=== PATIENT | female | born 1965 | race Caucasian/White ===

== ENCOUNTER 2023-01-04 12:47 | Emergency (ER) | payer MEDICAID, SELFPAY ==
[2023-01-04 12:48] VITALS: BP 118/85; PULSE 102; RESP 18; TEMP 37.2; O2SAT 96; BMI 19.2
--- NOTE | 2023-01-04 13:23 | CT_ITS ---
EXAM: CT ABDOMEN AND PELVIS WITHOUT INTRAVENOUS CONTRAST CLINICAL INDICATION: Abdominal pain -- PO Contrast TECHNIQUE: Helically acquired images were obtained of the abdomen and pelvis without intravenous contrast. This CT exam was performed using one or more of the following dose reduction techniques: automated exposure control, adjustment of the mA and/or kV according to patient size, and/or use of iterative reconstruction technique. This report was created using [employer] report generation technology. CONTRAST: Oral Gastrografin COMPARISON: None. FINDINGS: LOWER THORAX: Normal. Lung bases are clear. No cardiomegaly. No pericardial effusion. ABDOMEN: LIVER: 8 mm cyst noted within hepatic segment 3. No follow-up indicated. GALLBLADDER AND BILE DUCTS: Dependent density within the gallbladder may represent sludge, stones or vicarious contrast excretion. No gallbladder distention or wall edema. No intra- or extrahepatic biliary ductal dilation. PANCREAS: Pancreatic duct is dilated measuring 4.7 mm in maximum diameter. No discrete mass is suggested within the head of the pancreas. No focal cystic mass. SPLEEN: Normal. Normal size without focal cystic or solid mass. ADRENALS: Normal. No nodules. KIDNEYS AND URETERS: 3 mm stone noted within the upper pole of the left kidney. STOMACH AND BOWEL: Nonspecific distention of the large bowel. No evidence of bowel obstruction. PELVIS: APPENDIX: No evidence of acute appendicitis. BLADDER: Normal. REPRODUCTIVE: Unremarkable as visualized. No mass. ABDOMEN and PELVIS: INTRAPERITONEAL SPACE: Normal. No ascites or other fluid collection. No free air. BONES/JOINTS: No suspicious lytic or blastic abnormality. SOFT TISSUES: Normal. No discrete abdominal or pelvic wall hernia. VASCULATURE: Normal. Abdominal aorta is non-dilated. LYMPH NODES: Normal. No enlarged lymph nodes. CT/Abdomen/Pelvis without Cont IMPRESSION: 1. Distended pancreatic duct etiology of which is uncertain. Follow-up MRI with and without contrast may be of further value. 2. 3 mm nonobstructive left renal stone. 3. Question gallbladder sludge versus stones versus vicarious contrast excretion. 4. Nonspecific large bowel ileus. Electronically Signed: Kale Block MD at 16:23 EST ,
[2023-01-04 13:49] LABS: Bacteria 0 SEEN /hpf (None Seen); Mucous, Urine 0 SEEN /hpf (<or=2+); Squamous Epithelial Cells - UA 0 SEEN /hpf (5-10)
[2023-01-04 13:52] LABS: Color, Urine Yellow (Yellow); Glucose, Dipstick Normal (Normal); Ketone-Dipstick Negative (Negative); Leukocyte Esterase-Dipstick 25 /ul (Negative); Nitrite-Dipstick Negative (Negative); Occult Blood-Urine 50 /ul (Negative); Protein-Dipstick 100 mg/dl (Negative); Specific Gravity, Urine 1.025 (1.002-1.030); Urine Bilirubin Dipstick Negative (Negative); Urine Clarity Sl. Cloudy (Clear); Urine Urobilinogen Normal (Normal)
[2023-01-04 13:56] LABS: Absolute Neutrophil Count 5.2 X10^3/uL (2.0-7.7); Basophil# 0.01 X10^3/uL; Basophil% 0.1 % (0-1); Eosinophil# 0.04 X10^3/uL; Eosinophils% 0.5 % (0-5); Hematocrit 44.4 % (37-47); Hemoglobin 14.1 g/dL (12.0-15.0); Lymphocyte % 20.3 % (19-41); Mean Corp Hgb Conc 31.8 g/dL (32-36); Mean Corpuscular Hgb 29.9 pg (27.0-32.0); Mean Corpuscular Volume 94.1 fL (81-99); Mean Platelet Vol. 11.7 fl (6.2-12.0); Monocyte# 0.67 X10^3/uL; Monocyte% 9.1 % (0-10); NRBC Flagged by Analyzer 0 % (0-5); Neutrophil # 5.15 X10^3/uL (2.7-7.7); Neutrophil % 69.7 % (47-70); POSITIVE COUNT YES; RBC Distribution Width CV 12.7 % (11.6-14.6); RBC Distribution Width SD 43.9 fl (35.1-43.9); Red Blood Count 4.72 M/mm3 (4.2-5.4); White Blood Count 7.4 K/mm3 (4.4-11.0)
[2023-01-04 14:00] LABS: Red Blood Cells-Urine 0-5 SEEN /hpf (0-5); White Blood Cells 50-100 SEEN /hpf (0-5)
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
[2023-01-04 14:10] LABS: AST(SGOT) 31 U/L (15-37); Alanine Aminotransfer ALT/SGPT 36 U/L (13-56); Albumin, Serum 3.7 g/dL (3.2-5.0); Alkaline Phosphatase 103 U/L (45-117); Anion Gap 5 (5-15); BUN 11 mg/dL (7-18); BUN/Creat Ratio 13.5 RATIO (10-20); Calcium,Total 10.5 mg/dL (8.5-10.1); Chloride 111 mmol/L (98-107); Creatinine, Serum 0.82 mg/dL (0.55-1.02); EST Glomerular Filtration Rate 77 mL/min (>60); Est Glom Filt Rate - Afr Amer 93 mL/min (>60); Estimated Creatinine Clearance 65.28 ml/min; Globulin 3.6 g/dL (2.2-4.2); Glucose 105 mg/dL (74-106); Lipase 188 U/L (73-393); Potassium 4.6 mmol/L (3.5-5.1); Protein, Total 7.3 g/dL (6.4-8.2); Sodium Level 144 mmol/L (136-145)
[2023-01-04] MEDS: 0.9% Normal Saline 1,000 ML 1000 ML IV (14:41)
[2023-01-04] MEDS: Morphine 4 MG/ML Syringe IV (14:41)
[2023-01-04] MEDS: Ondansetron 4 MG/2 ML Vial IV (14:42)
[2023-01-04 14:49] VITALS: BP 116/78; PULSE 88; RESP 16; TEMP 36.7; O2SAT 99
[2023-01-04 15:38] LABS: Differential Indicated SCAN CRITERIA MET
[2023-01-04 15:46] LABS: Platelet Estimate ADEQUATE (ADEQ)
[2023-01-04 17:10] VITALS: BP 120/83; PULSE 81; RESP 16; O2SAT 100
== END 2023-01-04 17:18 | disposition home or self-care (01) ==
PROVIDERS: Emergency Provider Emergency Medicine; Visit Provider Emergency Medicine
DX: N32.9 Bladder disorder, unspecified (principal); N39.0 Urinary tract infection, site not specified; K86.89 Other specified diseases of pancreas; N20.0 Calculus of kidney; Z79.899 Other long term (current) drug therapy
CPT/HCPCS: 74176; 80053; 81001; 83690; 85025; 96361; 96374; 96375; 99283; J7030; A4216; J2405

== ENCOUNTER 2023-08-01 11:16 | Emergency (ER) | payer MEDICAID, SELFPAY ==
[2023-08-01 11:18] VITALS: BP 104/67; PULSE 79; RESP 16; TEMP 35.9; O2SAT 97; BMI 21.2
--- NOTE | 2023-08-01 12:13 | CT_ITS ---
STUDY: CT BRAIN WITHOUT CONTRAST REASON FOR EXAM: Female, 57 years old. Syncope RADIATION DOSAGE (If Supplied By Facility): CTDIvol = ( 44.99 ) mGy, DLP = ( 745.49 ) mGycm TECHNIQUE: Transaxial CT imaging of the brain was performed without administration of intravenous contrast material. Individualized dose optimization techniques were used for this CT. COMPARISON: No relevant priors. FINDINGS: Normal soft tissue structures. Normal calvarium. Normal size ventricles and extra-axial spaces for the patient''s age. Normal white matter tracts of the cerebral hemispheres. Normal basal ganglia and thalami. Normal brainstem. Normal cerebellum. There is no intracranial hemorrhage. There are no findings of an acute ischemic infarction. Normal visualized paranasal sinuses. CT/Brain/Head without Contrast IMPRESSION: Normal unenhanced CT scan of the brain. Electronically Signed: Vel Mojica MD at 13:05 EDT ,
--- NOTE | 2023-08-01 12:14 | EKG12_ITS ---
Test Reason : SYNCOPE Blood Pressure : / mmHG Vent. Rate : 085 BPM Atrial Rate : 085 BPM P-R Int : 168 ms QRS Dur : 080 ms QT Int : 372 ms P-R-T Axes : 076 077 077 degrees QTc Int : 442 ms Normal sinus rhythm Nonspecific ST abnormality Abnormal ECG Confirmed by PAWEL GARCIA, SHAE ([id number]), graphics editor RICKY WHEATLEY ([id number]) on 08/05/2023 2:07:47 PM Referred By: SHAYY Confirmed By:SHAE ARMAS MD
--- NOTE | 2023-08-01 12:20 | EX.ED.DYSGE1 ---
HPI History of Present Illness Chief Complaint: Syncope Narrative Narrative: Patient is a 57-year-old female who is presenting to the ER today with chief complaint of a closed head injury and near syncopal episode. Patient's caregiver is at bedside. Patient normally has intermittent diarrhea. Patient also has a history of bladder cancer that she is getting intermittent treatments with as well. Patient lives at a intermediate. Caregiver at bedside. Patient will normally have intermittent urinary or bowel incontinence. Patient felt like she is going to have a bowel movement/diarrhea at work, she wants to go home. Patient went into the restroom at work, was sitting on the toilet and did have some diarrhea. Patient did lock the door, patient was not feeling good when he was asking for help. Caregivers cannot get into the stall because the door was locked. Patient was able to stand up, unlock the door, and patient had lost her balance and had a near syncopal episode from standing up from the toilet after having diarrhea. Patient fell sideways, hitting the left side of her head against the bathroom stall. Patient not on blood thinners. Patient has no headache or neck pain. No chest pain or shortness of breath. No abdominal pain, mild nausea and 2 episodes of vomiting after the syncopal/close head injury. Patient currently has no nausea, she has had no vomiting in the ER. Patient was brought by care staff for evaluation. [facility] Home Medications aripiprazole 10 mg tablet 10 mg PO DAILY 01/04/23 [History Last Taken Unknown] fluticasone propionate 50 mcg/actuation nasal spray,suspension 1 spray intranasal DAILY 01/04/23 [History Last Taken Unknown] trazodone 50 mg tablet 50 mg PO QHS 01/04/23 [History Last Taken Unknown] Allergy/AdvReac Type Severity Reaction Status Date / Time bee venom protein (honey bee) Allergy Hives Verified 08/01/23 11:23 [bee stings] Penicillins [PCN] Allergy Hives Verified 08/01/23 11:23 Social History Smoking Status: Never smoker ROS ROS ED ROS Narrative REVIEW OF SYSTEMS: Unless otherwise stated in this report the patient's positive and negative responses for review of systems for constitutional, eyes, ENT, cardiovascular, respiratory, gastrointestinal, neurological, , musculoskeletal, and integument systems and related systems to the presenting problem are either stated in the history of present illness or were not pertinent or were negative for the symptoms and/or complaints related to the presenting medical problem. EXAM Physical Exam Narrative Exam Narrative: Vital signs reviewed and patient is not hypoxic. General: The patient appears well and in no apparent distress. Patient is resting comfortably on cart. Not toxic, lethargic, or listless. Skin: Warm, dry, no pallor noted. There is no rash noted. Head: Normocephalic, minimal small hematoma to left parietal area, firm, no abrasion, laceration, or any other acute signs of injury. No midline or paracervical tenderness palpation. Full range of motion with no difficulty. Eye: Normal conjunctiva, no drainage, EOMI. PERRL. Ears, Nose, Mouth, and Throat: oral mucosa is moist. Nares patent. Mouth without vesicles. Cardiovascular: Regular Rate and Rhythm, no murmurs, gallops, or rubs Respiratory: Patient is in no distress, no accessory muscle use, lungs are clear to auscultation, no wheezing, rales or rhonchi Back: non-tender, no CVA tenderness bilaterally to percussion. NO CTLS midline or paraspinal tenderness to palpation. GI: Soft, no tenderness to palpation, no masses appreciated. No rebound, guarding, or rigidity noted. No flank pain bilateral, no suprapubic tenderness palpation bilateral Musculoskeletal: The patient has full range of motion of all extremities and joints with no difficulty. Patient has no motor, no sensory deficits. Neurological: A&O x3, patient knows it summer/fall, slightly confused to year, normal speech, no focal neurological deficits. Psychiatric: Cooperative, patient is at baseline for her neurological developmental disability status. No acute changes. Const Vital Signs: 08/01/23 11:18 08/01/23 11:23 08/01/23 13:07 Temperature 96.6 F L Temperature Source Oral Pulse Rate 79 Pulse Rate [Lying] 88 Pulse Rate [Sitting (for 1 minute prior to obtaining)] 82 Pulse Rate [Standing (for 1 minute prior to obtaining)] 85 Respiratory Rate 16 Respiratory Pattern Normal Blood Pressure 104/67 Blood Pressure [Lying] 103/63 Blood Pressure [Sitting (for 1 minute prior to obtaining)] 102/96 H Blood Pressure [Standing (for 1 minute prior to obtaining)] 113/66 Blood Pressure Mean 79 Blood Pressure Mean [Lying] 76 Blood Pressure Mean [Sitting (for 1 minute prior to obtaining)] 98 Blood Pressure Mean [Standing (for 1 minute prior to obtaining)] 81 Pulse Ox 97 Oxygen Delivery Method Room Air 08/01/23 13:52 Temperature Temperature Source Pulse Rate 82 Pulse Rate [Lying] Pulse Rate [Sitting (for 1 minute prior to obtaining)] Pulse Rate [Standing (for 1 minute prior to obtaining)] Respiratory Rate 14 Respiratory Pattern Blood Pressure Blood Pressure [Lying] Blood Pressure [Sitting (for 1 minute prior to obtaining)] Blood Pressure [Standing (for 1 minute prior to obtaining)] Blood Pressure Mean Blood Pressure Mean [Lying] Blood Pressure Mean [Sitting (for 1 minute prior to obtaining)] Blood Pressure Mean [Standing (for 1 minute prior to obtaining)] Pulse Ox 99 Oxygen Delivery Method MDM MDM MDM Narrative Medical decision making narrative: Patient looks well. Patient's been drinking with no difficulty. No nausea vomiting in the ER. Education was done and close head injury near syncope at bedside with patient and staff member. Patient will be discharged back to intermediate. Paperwork was filled out for intermediate. Patient labs shows no significant findings, chest x-ray CT of the brain showed no acute changes. Patient has been asymptomatic in the ER Lab Data Attestation: I reviewed the patient's lab results. Labs: Laboratory Results - last 24 hr 08/01/23 08/01/23 11:40 13:38 WBC 6.9 RBC 4.53 Hgb 12.9 Hct 40.9 MCV 90.3 MCH 28.5 MCHC 31.5 L RDW Std Deviation 45.1 H RDW Coeff of Sudeep 13.7 Plt Count 227 MPV 10.9 Immature Gran % (Auto) 0.100 Neut % (Auto) 79.3 H Lymph % (Auto) 12.8 L Collin % (Auto) 7.6 Eos % (Auto) 0.1 Baso % (Auto) 0.1 Absolute Neuts (auto) 5.4 Absolute Lymphs (auto) 0.88 Nucleated RBC % 0 Sodium 143 Potassium 4.0 Chloride 113 H Carbon Dioxide 28.0 Anion Gap 2 L BUN 16 Creatinine 0.95 Estim Creat Clear Calc 57.10 Est GFR (MDRD) Af Amer 78 Est GFR (MDRD) Non-Af 64 BUN/Creatinine Ratio 16.8 Glucose 123 H Calcium 10.1 Total Bilirubin 0.80 AST 17 ALT 19 Alkaline Phosphatase 119 H Total Creatine Kinase 59 Troponin I High Sens < 3 L Total Protein 7.0 Albumin 3.7 Globulin 3.3 Albumin/Globulin Ratio 1.1 Urine Color Yellow Urine Clarity Clear Urine pH 5.0 Ur Specific [place] 1.025 Urine Protein 30 H Urine Glucose (UA) Normal Urine Ketones 5 H Urine Occult Blood 10 H Urine Nitrite Negative Urine Bilirubin Negative Urine Urobilinogen Normal Ur Leukocyte Esterase Negative Urine RBC 0-5 SEEN Urine WBC 0 SEEN Ur Squamous Epith Cells 0-5 SEEN Urine Bacteria 0 SEEN Urine Mucus 0 SEEN Radiography Chest X-Ray - ED: Read by ED Physician (Chest x-ray was read by Dr. Gregory. No acute cardial pulm disease, infiltrate, no effusion) Diagnostic Testing: Clinical Impression(s) from Imaging Studies Brain CT 08/01/23 12:13 IMPRESSION: Normal unenhanced CT scan of the brain. Electronically Signed: Vel Mojica MD at 13:05 EDT , Chest X-Ray 08/01/23 12:50 IMPRESSION: Hyperinflation. The lungs are clear. Calcified right hilar lymph nodes and right lower lobe granuloma. Electronically Signed: Vel Mojica MD at 13:06 EDT , EKG Initial EKG: Comments: EKG interpretation. Normal sinus rhythm 85 beats a minute. Normal axis deviation. No acute ST elevation, no acute ectopy. QTc of 442 Discharge Plan Triage Chief Complaint: Syncope ED Provider: Rashad Gregory Dx/Rx/DC Orders Clinical Impression: Syncope, Head injury, closed, Dehydration, mild Instructions: Causes of Syncope, Dehydration, ED Head Injury (Adult) Prescriptions: No Action trazodone 50 mg tablet 50 mg PO QHS fluticasone propionate 50 mcg/actuation spray,suspension 1 spray INTRANASAL DAILY aripiprazole 10 mg tablet 10 mg PO DAILY Primary Care Provider: Angie Mera Referrals: Care Physician,No Primary [Non-Staff] - Activity Restrictions/Additional Instructions: Continue to increase fluids, including Gatorade or Powerade. Follow-up with PCP and continue treatments. Continue medications as prescribed. Disposition Disposition: Home, Self Care
[2023-08-01] MEDS: 0.9% Normal Saline (1000mL) 1,000 ML 1000 ML IV (12:30)
[2023-08-01 12:31] LABS: Absolute Lymphocyte Count 0.88 X10^3/uL (0.83-4.51); Absolute Neutrophil Count 5.4 X10^3/uL (2.0-7.7); Basophil# 0.01 X10^3/uL; Basophil% 0.1 % (0-1); Eosinophil# 0.01 X10^3/uL; Eosinophils% 0.1 % (0-5); Hematocrit 40.9 % (37-47); Hemoglobin 12.9 g/dL (12.0-15.0); Lymphocyte # 0.88 X10^3/ul (0.83-4.51); Lymphocyte % 12.8 % (19-41); Mean Corp Hgb Conc 31.5 g/dL (32-36); Mean Corpuscular Hgb 28.5 pg (27.0-32.0); Mean Corpuscular Volume 90.3 fL (81-99); Mean Platelet Vol. 10.9 fl (6.2-12.0); Monocyte# 0.52 X10^3/uL; Monocyte% 7.6 % (0-10); NRBC Flagged by Analyzer 0 % (0-5); Neutrophil # 5.44 X10^3/uL (2.7-7.7); Neutrophil % 79.3 % (47-70); Platelet Count 227 K/mm3 (150-450); RBC Distribution Width CV 13.7 % (11.6-14.6); RBC Distribution Width SD 45.1 fl (35.1-43.9); Red Blood Count 4.53 M/mm3 (4.2-5.4); White Blood Count 6.9 K/mm3 (4.4-11.0)
--- NOTE | 2023-08-01 12:50 | RAD_ITS ---
STUDY: X-RAY CHEST REASON FOR EXAM: Female, 57 years old. [place] TECHNIQUE: PA and lateral views of the chest. COMPARISON: None. FINDINGS: EKG electrodes are seen. Hyperinflation. The lungs are clear. Calcified granuloma in the right lower lobe. There is no demonstrated pleural abnormality. Normal size heart. Calcified right hilar lymph nodes. Normal visualized pulmonary arteries. Normal visualized aortic arch and descending thoracic aorta. Normal visualized thoracic spine. Normal visualized ribs, clavicles, and shoulders. There is no demonstrated abnormality of the visualized soft tissue structures of the upper abdomen. RAD/Chest PA and Lateral IMPRESSION: Hyperinflation. The lungs are clear. Calcified right hilar lymph nodes and right lower lobe granuloma. Electronically Signed: Vel Mojica MD at 13:06 EDT ,
[2023-08-01 12:51] LABS: ALB/GLOB Ratio 1.1 RATIO (0.9-2.4); AST(SGOT) 17 U/L (15-37); Alanine Aminotransfer ALT/SGPT 19 U/L (13-56); Albumin, Serum 3.7 g/dL (3.2-5.0); Alkaline Phosphatase 119 U/L (45-117); Anion Gap 2 (5-15); BUN 16 mg/dL (7-18); BUN/Creat Ratio 16.8 RATIO (10-20); Calcium,Total 10.1 mg/dL (8.5-10.1); Chloride 113 mmol/L (98-107); Creatinine, Serum 0.95 mg/dL (0.55-1.02); EST Glomerular Filtration Rate 64 mL/min (>60); Est Glom Filt Rate - Afr Amer 78 mL/min (>60); Globulin 3.3 g/dL (2.2-4.2); Glucose 123 mg/dL (74-106); Sodium Level 143 mmol/L (136-145); Troponin-I HS (w/2H Reflex) < 3 pg/mL (3.0-54.0)
[2023-08-01 12:58] LABS: CPK Total, Creatine Kinase 59 U/L (26-192)
[2023-08-01 13:07] VITALS: BP 102/96; BP 103/63; BP 113/66; PULSE 82; PULSE 85; PULSE 88
[2023-08-01 13:46] LABS: Bacteria 0 SEEN /hpf (None Seen); Color, Urine Yellow (Yellow); Glucose, Dipstick Normal (Normal); Ketone-Dipstick 5 mg/dl (Negative); Leukocyte Esterase-Dipstick Negative /ul (Negative); Mucous, Urine 0 SEEN /hpf (<or=2+); Nitrite-Dipstick Negative (Negative); Occult Blood-Urine 10 /ul (Negative); Protein-Dipstick 30 mg/dl (Negative); Specific Gravity, Urine 1.025 (1.002-1.030); Urine Bilirubin Dipstick Negative (Negative); Urine Clarity Clear (Clear); Urine Urobilinogen Normal (Normal); White Blood Cells 0 SEEN /hpf (0-5)
[2023-08-01 13:52] VITALS: PULSE 82; RESP 14; O2SAT 99
[2023-08-01 13:57] LABS: Red Blood Cells-Urine 0-5 SEEN /hpf (0-5); Squamous Epithelial Cells - UA 0-5 SEEN /hpf (5-10)
[2023-08-01 14:28] LABS: Reflex Troponin-HS? (from REC) Y
[2023-08-01 15:15] VITALS: BP 109/70; PULSE 88; RESP 13; O2SAT 96
[2023-08-01 15:17] LABS: Troponin-I HS < 3 pg/mL (3.0-54.0)
== END 2023-08-01 15:28 | disposition home or self-care (01) ==
PROVIDERS: Emergency Provider Emergency Medicine; PCP Internal Medicine; Visit Provider Emergency Medicine
DX: R55 Syncope and collapse (principal); C67.9 Malignant neoplasm of bladder, unspecified; S00.03XA Contusion of scalp, initial encounter; W18.12XA Fall from or off toilet with subsequent striking against object, initial encounter; E86.0 Dehydration; R19.7 Diarrhea, unspecified; Z79.899 Other long term (current) drug therapy
CPT/HCPCS: 70450; 71046; 80053; 81001; 82550; 84484; 85025; 93005; 96360; 99285